=== PATIENT | female | born 1980 | race Hispanic/Latino ===

== ENCOUNTER 2018-01-10 11:30 | Emergency (ER) | payer SELFPAY | END 2018-01-10 13:27 | disposition home or self-care (01) | LOC: EDH 11:30 | DX: J20.9 Acute bronchitis, unspecified (principal); Z72.0 Tobacco use | CPT/HCPCS: 71045; 87804 ==

== ENCOUNTER 2024-05-09 14:38 | Emergency (ER) | payer OTHER ==
[~2024-05-09] VITALS: Ht 160 cm; Wt 91.6 kg
[2024-05-09 15:30] VITALS: BP 138/79; PULSE 73; RESP 16; O2SAT 98
== END 2024-05-09 16:06 | disposition home or self-care (01) ==
LOC: EDH 14:38
DX: F41.0 Panic disorder [episodic paroxysmal anxiety] (principal); F32.A Depression, unspecified; F17.200 Nicotine dependence, unspecified, uncomplicated; Z98.890 Other specified postprocedural states; X08.8XXA Exposure to other specified smoke, fire and flames, initial encounter; Y93.89 Activity, other specified; Y92.89 Other specified places as the place of occurrence of the external cause; Y99.8 Other external cause status
CPT/HCPCS: 99282